=== PATIENT | female | born 1965 | race Caucasian/White ===

== ENCOUNTER → 2018-02-06 | Outpatient (CLI) | payer OTHER ==
[~2018-02-06] VITALS: Ht 162.6 cm; Wt 64.0 kg
[~2018-02-06] MED LIST: ACETAMINOPHEN-1 EAC1 PO; ALDACTONE25 MG PO; AMIODARONE PO; ASPIRIN EC81 M1 PO; ASPIRIN325 PO; CELEXA 20 MG TA20 M1 PO; FLONASE 0.05%50 MCG NASAL; IBUPROFEN200 M1 PO; KEFLEX250 MG PO; LISINOPRIL2.5 MG PO; NOHOMEMEDICATIONS; PACERONE 200 M200 M1 PO; PROPAFENONE 15150 MG PO; VITCB500GO PO; ZINC SULFATE 2220 M1 PO
--- NOTE | ~2018-02-06 | HPC ---
[facility] [address] [place] [address] PAIN MANAGEMENT CONSULTATION Name: WOO KNUTSON Room #: REG KADEN Lomeli#: [id number] Admission: 02/06/18 Attend Phys: Gwendolyn Oh MD Discharge: Date of : 65 Report #: [id number] THIS REPORT FOR: //name// CC: Gwendolyn Acevedo DATE OF SERVICE: 02/06/2018 FOLLOWUP COMPLAINT: "I have been given authorization to proceed with a cervical epidural steroid injection and I have come to undergo the injection." FOLLOWUP HISTORY: The patient is a 52-year-old female, who has been seen in the pain clinic because of cervical radiculopathy. She has been experiencing pain and discomfort in her left arm with radiation down her neck and shoulder. Also, has noted some pain and discomfort down into her hand. Has been having some problems with this discomfort since 2016. Pain has become more problematic at this juncture. 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 Numbness and tingling down into her hand involving her little finger and ring finger. She notes a cracking and popping sensation in her neck. She has tried muscle relaxants in the past with no significant improvement. Finds that Tylenol No. 3 minimally helps her pain and discomfort. She has noted that her headaches, which she was having a few weeks ago have subsided somewhat. She still does have some level of headache pain. Notes that the headache pain has subsided, but has noted an increase in the pain and discomfort involving her left arm, shoulder, hand and down into the forearm. She has returned today for an injection in the neck to help quell the pain and discomfort that she is experiencing down into her arm. ALLERGIES: No known drug allergies. CURRENT MEDICATIONS: Amiodarone 200 mg daily, Codeine #3 two tablets q. 6 hours p.r.n. pain, ibuprofen 200 mg a total of 800 mg t.i.d. LABORATORY DATA: CT scan of the cervical spine dated 01/20/2018 reveals the cervical body heights and disk spaces are maintained. Alignment of the cervical spine appears within normal limits. There is straightening of a mild reversal of the cervical curvature. The paravertebral soft tissues are unremarkable. The facets appear well aligned. There is mild multilevel facet arthropathy. There are uncovertebral joint osteophytes at C4-C5 and C5-C6. The lateral masses are in alignment. No definite disk herniation or spinal canal narrowing is seen. PAIN CLINIC ASSESSMENT: 1. Osteoarthritis involving the neck. 2. Height 5 feet 4 inches, weight 141 pounds, BMI is 24. 3. Vital signs: Blood pressure 99/66, pulse 52, respiratory rate 14, room air [facility] [address] [place] [address] PAIN MANAGEMENT CONSULTATION Name: WOO KNUTSON SUSANNA [id number] Admission: 02/06/18 Attend Phys: Gwendolyn Oh MD Discharge: Date of : 65 Report #: [id number] saturation 98%. 4. Pain intensity 10/25. 5. Fall risk. The patient has not fallen in the last 3 months. 6. Blood thinner. The patient is not on a blood thinning medication. 7. Hypertension. The patient is not being treated for hypertension. 8. Opioid therapy greater than 6 weeks. The patient is not on opioid therapy. 9. Risk assessment tool 0-3, which is low risk for use of opioids. 10. Functional assessment tool 44/70 showed moderate problems with activities of daily living secondary to her pain. 11. Recreational drug use. The patient denies use of recreational drugs. 12. Smoking Tobacco: The patient denies use of tobacco. 13. Alcoholic use. The patient denies use of alcoholic beverages. PHYSICAL EXAMINATION: GENERAL: The patient is a well-developed, well-nourished white female. Appears her stated age. She is alert and oriented x 3. Affect is appropriate. HEENT: Normocephalic, atraumatic. Extraocular eye muscles intact. Sclerae nonicteric. Hearing within normal limits. The patient notes some pain and discomfort with movement of her head and tilting into the left. Notes increased pain and discomfort down into her arm on the left side. Cervical flexion causes some discomfort in the arm. Has some pain and discomfort radiating down to the deltoid portion of her arm and into her little and ring finger. Spurling's maneuver is positive. HEART: Regular rate. ABDOMEN: Nontender. LUNGS: Clear to auscultation without rales or rhonchi. MUSCULOSKELETAL: Without significant kyphosis, scoliosis or lordosis. Muscle strength is judged to be 5/5 for the major muscle groups of the lower extremity. Upper extremity +2 for the biceps on the right, triceps and brachioradialis +1. Absent at ____ biceps reflex on the left. Deep tendon reflexes knees +2, ankles +1. IMPRESSION: 1. Cervical radiculopathy with pain radiating down into the C7 distribution involving the left side with loss of biceps reflex and triceps reflex. Muscle strength is judged to be 5/5 on the right and 4.5/5 on the left. 2. History of SVT, status post cardiac ablation in 1999 and 2014. 3. Arrhythmogenic right ventricular cardiomyopathy - ICD placed. RECOMMENDATIONS: We discussed treatment options with the patient. At this juncture, she has returned to the pain clinic. She has been given the ability to undergo a cervical epidural steroid injection. The patient would like to proceed. Risks and benefits of the procedure, which could include but are not limited to infection, increased muscle soreness, headache, muscle weakness, worsening of pain, no improvement in pain were discussed and the patient elects to proceed. [address] [address] PAIN MANAGEMENT CONSULTATION Name: WOO KNUTSON Room #: REG Kathie Lomeli#: [id number] Admission: 02/06/18 Attend Phys: Gwendolyn Oh MD Discharge: Date of : 65 Report #: [id number] PROCEDURE NOTE: The patient was taken to the procedure area. She was then assisted in getting on the examination table. The patient was placed in the prone position. A pillow was placed under her shoulders to improve the positioning of her neck for the injection. Fluoroscopy using anterior, posterior as well as lateral imaging was used. The left C7-T1 paraspinous area was identified. A 0.25% bupivacaine was infiltrated into this area. A 17-gauge Tuohy with loss of resistance technique was used to gain access to the epidural space. There was no CSF, heme or paresthesia. A total of 120 mg was injected. The patient tolerated the procedure well. She remained in the pain clinic for an appropriate amount of time. A total of 24 seconds fluoroscopy time was used. The patient will follow up in the future. Pain score was 1 at the time of discharge. By: [id number] Gwendolyn Oh MD /nt
[2018-02-06 09:45] VITALS: BP 99/66
== END | disposition home or self-care (01) ==
LOC: PAIN 06:58
DX: M54.13 Radiculopathy, cervicothoracic region (principal); M46.92 Unspecified inflammatory spondylopathy, cervical region; G89.29 Other chronic pain; I42.8 Other cardiomyopathies; Z95.0 Presence of cardiac pacemaker; Z79.891 Long term (current) use of opiate analgesic; Z79.899 Other long term (current) drug therapy

== ENCOUNTER → 2020-04-12 | Outpatient (CLI) | payer OTHER | LOC: RAD 11:23 | PROVIDERS: ATTEND Family Medicine | DX: Z12.31 Encounter for screening mammogram for malignant neoplasm of breast (principal) ==

== ENCOUNTER → 2021-06-01 | Outpatient (CLI) | payer OTHER | LOC: RAD 11:30 | PROVIDERS: ATTEND Family Medicine | DX: Z12.31 Encounter for screening mammogram for malignant neoplasm of breast (principal); N64.89 Other specified disorders of breast ==